=== PATIENT | male | born 1955 | race Caucasian/White ===

== ENCOUNTER 2017-02-04 13:52 | Emergency (ER) | payer MEDICARE, BC ==
--- NOTE | 2017-02-04 15:01 | ED ---
General Adult HPI - General Chief complaint: Fall Stated complaint: Fall/Back Pain Time Seen by Provider: 02/04/17 14:25 Source: patient, RN notes reviewed Mode of arrival: wheelchair Limitations: no limitations - History of Present Illness Initial comments: Patient 61-year-old male who presents emergency room today with a chief complaint of a fall that occurred just prior to arrival. He does admit that he was sitting down on a walker when his granddaughter was pushing behind him and they hit a bump causing him to fall backwards landing on his back. He states that he does have a few abrasions in this area. Does admit to pain locally to the lower back area. Denies any pain to his hips. Denies any head injury or loss consciousness. Patient denies any other complaints or symptoms. Patient denies any recent fever, chills, shortness of breath, chest pain, abdominal pain , nausea or vomiting, numbness or tingling, dysuria or hematuria, constipation or diarrhea, headaches or visual changes, or any other complaints. - Related Data Home Medications Medication Instructions Recorded Confirmed Acetaminophen Tab [Tylenol Tab] 500 mg PO Q6HR PRN 02/04/17 02/04/17 Alendronate Sodium [Fosamax] 70 mg PO LY 02/04/17 02/04/17 Amitriptyline HCl [Elavil] 50 mg PO HS 02/04/17 02/04/17 Calcium Carbonate [Calcium] 600 mg PO DAILY 02/04/17 02/04/17 Certolizumab Pegol [Cimzia] 200 mg SQ Q28D 02/04/17 02/04/17 Chlorpheniramine/Dextromethorp 1 tab PO DAILY PRN 02/04/17 02/04/17 [Coricidin Hbp Cough & Cold Tab] Cholecalciferol (Vitamin D3) 2,000 unit PO DAILY 02/04/17 02/04/17 [Vitamin D3] Cyclobenzaprine [Flexeril] 10 mg PO TID 02/04/17 02/04/17 DULoxetine HCL [Cymbalta] 30 mg PO DAILY 02/04/17 02/04/17 DULoxetine HCL [Cymbalta] 60 mg PO DAILY 02/04/17 02/04/17 Gabapentin 600 mg PO QID 02/04/17 02/04/17 HYDROcodone/APAP 10-325MG [[place] 1 tab PO Q4HR PRN 02/04/17 02/04/17 10-325] Meloxicam [Mobic] 7.5 mg PO BID 02/04/17 02/04/17 Morphine/Bupivacaine Pain Pump 5.18 mg INTRATHECA DAILY 02/04/17 02/04/17 Pantoprazole [Protonix] 40 mg PO DAILY 02/04/17 02/04/17 Sennosides [Senokot] 17.2 mg PO DAILY PRN 02/04/17 02/04/17 diphenhydrAMINE [Benadryl] 25 mg PO HS PRN 02/04/17 02/04/17 Previous Rx's Medication Instructions Recorded HYDROcodone/APAP 10-325MG [[place] 1 tab PO Q6H PRN #12 tab 02/04/17 10-325] Allergies Allergy/AdvReac Type Severity Reaction Status Date / Time adhesive tape Allergy Rash/Hives Verified 02/04/17 14:27 Review of Systems ROS Statement: Those systems with pertinent positive or pertinent negative responses have been documented in the HPI. ROS Other: All systems not noted in ROS Statement are negative. Past Medical History Past Medical History: Osteoarthritis (OA) Additional Past Medical History / Comment(s): ankylosis spondyilosis brain bleed History of Any Multi-Drug Resistant Organisms: None Reported Past Surgical History: Orthopedic Surgery Additional Past Surgical History / Comment(s): pain pump neuro stimulator knee surg Past Psychological History: Depression Smoking Status: Never smoker Past Alcohol Use History: None Reported Past Drug Use History: None Reported General Exam - General Exam Comments Initial Comments: General: The patient is awake and alert, in no distress, and does not appear acutely ill. Eye: Pupils are equal, round and reactive to light, extra-ocular movements are intact. No nystagmus. There is normal conjunctiva bilaterally. No signs of icterus. Ears, nose, mouth and throat: There are moist mucous membranes and no oral lesions. Neck: The neck is supple, there is no tenderness or JVD. Cardiovascular: There is a regular rate and rhythm. No murmur, rub or gallop is appreciated. Respiratory: Lungs are clear to auscultation, respirations are non-labored, breath sounds are equal. No wheezes, stridor, rales, or rhonchi. Musculoskeletal: Shows good range of motion. Does have some mild tenderness in the lower lumbar spine from L2 to L5. Strength 5/5. Sensation intact. Pulses equal bilaterally 2+. Neurological: A&O x 3. CN II-XII intact, There are no obvious motor or sensory deficits. Coordination appears grossly intact. Speech is normal. Skin: Facial abrasion to the posterior elbows along with lower back over L3. Psychiatric: Cooperative, appropriate mood & affect, normal judgment. Limitations: no limitations Course Vital Signs 02/04/17 14:05 Temperature 98.6 F Pulse Rate 72 Respiratory 18 Rate Blood Pressure 158/76 O2 Sat by Pulse 97 Oximetry Medical Decision Making - Medical Decision Making Patient's x-ray reviewed and shows ankylosing spondylitis. There may be degenerative change at L5-S1 disc interspace. There is end plate sclerosis at the level suggesting either an old injury with nonunion and secondary degenerative changes versus a incomplete fusion here. As read by radiologist Dr. Barnard. Results were discussed with the patient. Been updated. Will be given a short prescription of pain medication as he states is from [place] sees a pain specialist there. Long conversation have a patient about taking sure that this was not breaking any type. Pain contract. He states he will check and find out. He will be given a short prescription of [place] to go home with. Disposition Clinical Impression: Fall, Acute low back pain Disposition: HOME SELF-CARE Condition: Good Instructions: Acute Low Back Pain (ED) Additional Instructions: Please use medication as discussed. Please follow-up with family doctor in the next 2 days of symptoms have not improved. Please return to emergency room if the symptoms increase or worsen or for any other concerns. Prescriptions: HYDROcodone/APAP 10-325MG [[place] 10-325] 1 tab PO Q6H PRN #12 tab PRN Reason: Pain Referrals: None,Stated [REFERRING] - 1-2 days Time of Disposition: 15:47
--- NOTE | 2017-02-04 15:31 | XR ---
EXAMINATION TYPE: XR lumbar spine 2 or 3V DATE OF EXAM: 02/04/2017 COMPARISON: NONE HISTORY: 61-year-old male generalized low back pain after fall TECHNIQUE: 3 views. FINDINGS: Diffuse osteopenia. There is smooth symmetrical syndesmophytes along the lumbar spine. Rightward trun cydney shift. There is also bony ankylosis of the posterior elements. No malalignment or vertebral compr ession deformity. There appears to be some sclerosis and incomplete bony ankylosis at the L5-S1 level . IMPRESSION: Ankylosing spondylitis. There may be degenerative change at the L5-S1 disc interspace. There is endpl ate sclerosis at this level suggesting either old injury with nonunion and secondary degenerative leonid nge versus incomplete fusion here.
[2017-02-04 16:00] VITALS: BP 127/62; PULSE 78; RESP 16; TEMP 97.6
== END 2017-02-04 16:00 | disposition home or self-care (01) ==
LOC: EC 13:52
DX: M54.5 Low back pain (principal); M19.90 Unspecified osteoarthritis, unspecified site; F32.9 Major depressive disorder, single episode, unspecified; Z79.891 Long term (current) use of opiate analgesic; Z79.899 Other long term (current) drug therapy; Z91.048 Other nonmedicinal substance allergy status; W18.00XA Striking against unspecified object with subsequent fall, initial encounter
CPT/HCPCS: 72100; 99283